=== PATIENT | female | born 1955 | race Caucasian/White ===

== ENCOUNTER 2017-04-22 14:55 | Inpatient (IN) | payer MEDICARE, OTHER ==
[~2017-04-22] VITALS: Ht 167.6 cm; Wt 102.5 kg
[2017-04-22 16:30] VITALS: BP 119/78
--- NOTE | 2017-04-22 17:20 | NUR ---
GPS RN ADMITTING NOTE Pt is 61 Y/O female brought in to the hospital by ambulance via gurney from [facility]. Pt admitted on a 5150 for DTS. Per 72 hrs hold, Pt not sleeping for 2 days, being depressed, not stable on medication and pt told collateral that she was going to overdose on pills. Upon admission, pt A/O X4 verbally responsive. Denies SI/HI/AVH. Skin assessment done and pictures placed in chart. Dr. Castillo (Psychiatrist) made aware about admission with new orders noted and carried out. Belongings secured. Pt oriented to new room and environment. Will continue to monitor her behavior. Called Taty (Caregiver) to notify that pt admitted to the unit, no response left msg to call back. Addendum: 04/22/17 at 1732 by ЕЛЕНА BENEDICT RN Pt admitted at 1630.
[2017-04-22] MEDS ORDERED: ACETAMINOPHEN 325 MG TABLET PO PRN (17:30)
[2017-04-22] MEDS ORDERED: MAGNESIUM HYDROXIDE 30 ML UDC PO PRN (17:30)
[2017-04-22] MEDS ORDERED: MAG HYDROX/AL HYDROX/SIMETH 30 ML UDC PO PRN (17:30)
[2017-04-22] MEDS ORDERED: NIFE60TA69 PO (17:54)
[2017-04-22] MEDS ORDERED: LURA40TA PO (17:56)
[2017-04-22] MEDS ORDERED: GABA-534 PO (17:56)
[2017-04-22] MEDS ORDERED: DIPH-530 PO ×2 (17:58→18:23)
--- NOTE | 2017-04-22 18:24 | NUR ---
GPS RN NOTE Called [facility] and left msg for Dr. Nguyen that pt is admitted to the unit.
--- NOTE | 2017-04-22 18:32 | NUR ---
GPS RN NOTE Received call from Noemy (Caregiver) made aware that pt admitted to the unit and made aware about visiting hours.
[2017-04-22 20:00] VITALS: BP 118/82
--- NOTE | 2017-04-22 22:30 | NUR ---
GPS RN: [facility] ON-CALL CALLED AND REMINDED FOR MED RECON. WILL WAIT FOR FURTHER ORDERS.
--- NOTE | 2017-04-23 04:20 | NUR ---
GPS RN: THE PATIENT IN THE ROOM KEPT ON RINGING HER CALL STAN AND YELLED, "WAKE UP, WAKE UP!" WHEN THE TRAINING DIRECTOR WENT INTO THE ROOM AND ASKED WHAT SHE NEEDS AND WHY SHE RANG HER PIERCE PATIENT ANSWERED, "I DON'T KNOW." A FEW MINUTES LATER, PATIENT'S ROOMMATE 219-B(KD) CAME TO THE STATION AND REPORTED THAT THE PATIENT ASKED HER, "HAVE YOU EVER HAD A SEX WITH YOUR DAD?, YOU SHOULD HAVE SEX WITH YOUR DAD". THE HOT DIE PICKER THEN WENT INTO THE PATIENT ROOM TO SET LIMITS WITH HER. REALITY ORIENTATION DONE. REMINDED PATIENT THAT SHE HAS A ROOMMATE AND THAT WE HAVE TO OBSERVE UNIT POLICIES ESPECIALLY WHEN IT COMES TO SILENCE INSIDE THE UNIT. WILL MONITOR PATIENT FOR MOOD, SAFETY AND BEHAVIOR.
--- NOTE | 2017-04-23 06:00 | NUR ---
GPS RN: CALLED [facility] FOR[employer] TECHNOLOGY PROFESSOR- GARRET CHIN AND REMINDED OF THE MED RECON. WILL FOLLOW UP.
[2017-04-23 07:03] LABS: ALBUMIN 3.3 g/dL (3.4-5.0); BILIRUBIN,TOTAL 0.5 mg/dL (0.2-1.0); CALCIUM, SERUM 9.3 mg/dL (8.5-10.1); CREATININE 1.7 mg/dL (0.6-1.3); POTASSIUM 4.2 mmol/L (3.5-5.1); TOTAL PROTEIN, SERUM 6.5 g/dL (6.4-8.2)
[2017-04-23 07:04] LABS: CHOLESTEROL 126 mg/dL (<200); HDL CHOLESTEROL 44 mg/dL (40-60); LDL 69 mg/dL (0-99); TRIGLYCERIDES 58 mg/dL (30-150)
[2017-04-23 08:00] VITALS: BP 148/91
[2017-04-23] MEDS: clonazePAM 0.5 MG TABLET PO PRN ×2 (09:23→23:37)
[2017-04-23] MEDS: NIFEdipine XL (30MG) 30 MG TAB PO SCH (10:33)
[2017-04-23] MEDS: GABAPENTIN 300 MG CAPSULE PO SCH ×2 (10:33→16:24)
[2017-04-23 16:07] VITALS: BP 120/90
[2017-04-23 16:09] LABS: APPEARANCE,URINE TURBID (CLEAR); BILIRUBIN,URINE NEGATIVE (NEGATIVE); BLOOD, URINE NEGATIVE Ery/uL (NEGATIVE); COLOR,URINE YELLOW (YELLOW); KETONES,URINE NEGATIVE (NEGATIVE); LEUKOCYTE ESTERASE ,URINE 1+ (NEGATIVE); NITRITE, URINE NEGATIVE (NEGATIVE); PH,URINE 5.5 (5.0-8.0); PROTEIN,URINE NEGATIVE (NEGATIVE); UGLUCOSE NEGATIVE (NEGATIVE); UROBILINOGEN,URINE 0.2 EU/dL (0.2)
[2017-04-23 16:22] LABS: CREATININE, URINE 46.4 MG/DL (30.0-125.0); URINE TOTAL PROTEIN 10.6 mg/dL (0-11.9)
[2017-04-23 17:05] LABS: RBC,URINE 0-2 /HPF (0-2)
[2017-04-23 17:07] LABS: BACTERIA,URINE Few /HPF (None Seen); SQUAMOUS EPITHELIAL CELL,UR Rare /HPF (None Seen)
[2017-04-23 17:08] LABS: EOSINOPHIL,URINE None Seen
--- NOTE | 2017-04-23 17:38 | NUR ---
Initial discharge plan :Pt lives alone at [address] [place] [address] and wants to return when stable. Pt. states she has a caregiver at home every day (4 hours a day) and knows she can take care of herself the rest of the time. Pt. refuses placement at this time and wants to return home. SW will follow up with pt's caregiver, Noemy [phone] and will help plan for a safe and proper discharge.
[2017-04-23 19:44] VITALS: BP 102/66
[2017-04-23] MEDS: diphenhydrAMINE HCL 25 MG CAPSULE PO SCH (21:31)
[2017-04-23 22:00] VITALS: BP 102/66
--- NOTE | 2017-04-23 23:39 | NUR ---
GPS RN: PATIENT NOTED TO BE ANXIOUS AT THIS TIME OF ASSESSMENT. REQUESTED FOR KLONOPIN MEDICATION. GIVEN 0.5 MG ORDERED. WILL CONTINUE TO MONITOR PATIENT AND THE EFFECTIVENESS OF THE MEDICATION.
[2017-04-24] MEDS: TEMAZEPAM 7.5 MG CAPSULE PO PRN (00:58)
--- NOTE | 2017-04-24 01:11 | NUR ---
GPS RN: NOTED THE PATIENT TO BE IN A SEXUALLY INAPPROPRIATE BEHAVIOR. WHEN SHE NOTICED THE NURSE, SHE THEN ASKED FOR HER RESTORIL MEDICATION. GIVEN RESTORIL 7.5 MG ORDERED. WILL MONITOR PATIENT AND THE EFFECTIVENESS OF THE MEDICATIONS.
[2017-04-24] MEDS ORDERED: Z GUARD REMEDY 4 OZ OINT TP ONE (05:51)
--- NOTE | 2017-04-24 06:38 | NUR ---
GPS RN: 0620- NOTED PATIENT IN THE ROOM, AWAKE , WITH LEGS WIDE OPEN AND HER RIGHT HAND TOUCHING HER PRIVATE PARTS AND STARTED TO SCREAM AT STAFF. 0635- PATIENT STILL IN THE ROOM AND TOUCHING HER PRIVATE INAPPROPRIATELY. TOLD THE PATIENT TO ONLY DO STUFF LIKE THAT IN PRIVATE AND TO COVER HERSELF UP WITH A BLANKET, PATIENT ANSWERED "WHAT'S A BLANKET?" "CAN YOU TOUCH ME?". INSTRUCTED PATIENT TO STOP WHAT SHE IS DOING, PATIENT REPLIED "BUT IT FEELS GOOD, CAN YOU TOUCH ME PLEASE" LIMIT SETTING DONE. TOLD PATIENT TO ONLY DO STUFF WHEN IN PRIVATE ROOM. WILL CONTINUE TO MONITOR PATIENT FOR MOOD, SAFETY AND BEHAVIOR.
[2017-04-24 06:49] LABS: BASOPHILS % (AUTO) 0.3 % (0.0-2.0); EOSINOPHILS # (AUTO) 0.4 /CMM (0.0-0.7); HEMATOCRIT 36 % (33-45); HEMOGLOBIN 12.4 g/dL (11.5-14.8); LYMPHOCYTES # (AUTO) 2.6 /CMM (0.8-4.8); MEAN CORPUSCULAR HEMOGLOBIN 31 PG (26.0-33.0); MEAN CORPUSCULAR HGB CONC 35 g/dl (31.0-36.0); MEAN CORPUSCULAR VOLUME 90 fL (82-100); MONOCYTES # (AUTO) 0.6 /CMM (0.1-1.30); MONOCYTES % (AUTO) 4.9 % (2.0-12.0); NEUTROPHILS # (AUTO) 8.4 /CMM (1.8-8.9); NEUTROPHILS % (AUTO) 69.8 % (43.0-81.0); PLATELET COUNT (AUTO) 275 /CMM (150-450); RDW COEFFICIENT OF VARIATION 12.8 (11.5-15.0)
[2017-04-24 07:26] LABS: CALCIUM, SERUM 9.2 mg/dL (8.5-10.1); CREATININE 1.7 mg/dL (0.6-1.3); MAGNESIUM 1.7 mg/dL (1.8-2.4); PHOSPHORUS 4.5 mg/dL (2.5-4.9); POTASSIUM 4.1 mmol/L (3.5-5.1)
[2017-04-24] MEDS: clonazePAM 0.5 MG TABLET PO PRN ×3 (07:49→23:45)
--- NOTE | 2017-04-24 07:49 | NUR ---
[id number]: GAVE KLONOPIN 0.25 MG PO DUE TO SEVERE ANXIETY UPON PT REQUEST AND WILL CONTINUE TO MONITOR FOR EFFECTIVENESS OF MEDICATION.
[2017-04-24 08:00] VITALS: BP 100/67
[2017-04-24] MEDS: GABAPENTIN 300 MG CAPSULE PO SCH ×2 (08:07→16:29)
[2017-04-24] MEDS: NIFEdipine XL (30MG) 30 MG TAB PO SCH (08:07)
--- NOTE | 2017-04-24 10:30 | NUR ---
[id number]: NOTIFIED DR. GAN ABOUT LAB RESULTS ON 04/24/17: HR=269, CHLORIDE= 110, ANION GAP= 15, BUN= 23, CREATININE= 1.7, TOTAL CREATININE KINASE=25. ALSO LAB RESULTS ON 04/23/17: URINE WBC= 3-5, UR RANDOM SODIUM= 25. NO NEW ORDERS AT THIS TIME
[2017-04-24] MEDS ORDERED: MAGNESIUM OXIDE 400 MG TABLET PO ONE (11:30)
[2017-04-24] MEDS: Z GUARD REMEDY 4 OZ OINT TP SCH (12:09)
--- NOTE | 2017-04-24 12:09 | NUR ---
[id number]: GAVE KLONOPIN 0.25 MG PO DUE TO SEVERE ANXIETY UPON PT REQUEST AND WILL CONTINUE TO MONITOR FOR EFFECTIVENESS OF MEDICATION.
--- NOTE | 2017-04-24 15:31 | NUR ---
BRIGIDO left a voicemail for pt's caregiver, Noemy [phone] and asked to call back to discuss pt's discharge and living conditions. BRIGIDO will follow up
[2017-04-24 16:00] VITALS: BP 130/90
[2017-04-24 20:18] VITALS: BP_SYST 120; BP_SYST 127; BP_DIAS 75; BP_DIAS 79
[2017-04-24] MEDS: diphenhydrAMINE HCL 25 MG CAPSULE PO SCH (21:32)
[2017-04-25] MEDS: TEMAZEPAM 7.5 MG CAPSULE PO PRN (02:41)
--- NOTE | 2017-04-25 07:30 | NUR ---
yells out from time to time.
[2017-04-25 08:00] VITALS: BP 142/99
--- NOTE | 2017-04-25 09:24 | NUR ---
given klonopin 0.25 mg po.yelling out loudly.verbally calmed down
[2017-04-25] MEDS: GABAPENTIN 300 MG CAPSULE PO SCH ×2 (09:27→17:23)
[2017-04-25] MEDS: clonazePAM 0.5 MG TABLET PO PRN ×2 (09:27→22:31)
[2017-04-25] MEDS: NIFEdipine XL (30MG) 30 MG TAB PO SCH (09:28)
[2017-04-25 11:10] LABS: *SPE A/G RATIO 1.1 (0.7-1.7); *SPE ALBUMIN 3.2 g/dL (2.9-4.4); *SPE ALPHA-1-GLOBULIN 0.3 g/dL (0.0-0.4); *SPE ALPHA-2-GLOBULIN 0.7 g/dL (0.4-1.0); *SPE BETA GLOBULIN 0.9 g/dL (0.7-1.3); *SPE GLOBULIN, TOTAL 2.9 g/dL (2.2-3.9); *SPE M-SPIKE Not Observed g/dL (Not Observed); *SPE PROTEIN TOTAL 6.1 g/dL (6.0-8.5)
[2017-04-25 14:16] LABS: PTH, INTACT 60 pg/mL (15-65)
--- NOTE | 2017-04-25 15:01 | NUR ---
Group Notes: S: Patient stated in group- "what is your education? how did you earn your degree so that you can talk to? 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 How can I research into getting an SATELLITE TV INSTALLER? O: Patient was hyperverbal and asking Sw questions about her education. Patient had do be redirected several times. A: Patient was interacting with staff and peers. Patient had to be redirected several times as she kept veering off topic. P: Sw will encourage patient to continue attending group activity.
[2017-04-25 16:00] VITALS: BP 146/91
--- NOTE | 2017-04-25 18:17 | NUR ---
no change in status.
--- NOTE | 2017-04-25 18:25 | NUR ---
no change in status.
--- NOTE | 2017-04-25 19:30 | NUR ---
GPS RN NOTE, RECEIVED PATIENT AWAKE AND IN BED, NO S/S OR COMPLAINTS OF PAIN AT THIS TIME. PATIENT IS DISPLAYING NO S/S OF APPARENT DISTRESS AT THIS TIME. PATIENT BREATHING IS UNLABORED WITH EQUAL RISE AND FALL OF THE CHEST. PATIENT IS ALERT AND ORIENTED X 3 ON ROOM AIR WITH A SPO2 97%. PATIENT COMPLAINT WITH MEDICATION, ANXIOUS, COOPERATIVE, MUMBLING TO SELF, DELUSIONAL, SEXUALLY INAPPROPRIATE, AND NEEDS REORIENTATION. PATIENT DENIES SUICIDE AND HOMICIDAL IDEATIONS AT THIS TIME. PATIENT ASSISTED WITH TURNING AND REPOSITIONING Q2HR AND PRN FOR COMFORT AND CIRCULATION. PATIENT HAS NO NEEDS AT THIS TIME. PATIENT EDUCATED ON THE USE OF THE CALL PIERCE. PATIENT BED SIDE RAILS UP X2 FOR SAFETY, BED IS LOCKED AND LOW WILL CONTINUE TO MONITOR AND MAINTAIN SAFETY.
[2017-04-25 20:34] VITALS: BP 131/83
[2017-04-25] MEDS: diphenhydrAMINE HCL 25 MG CAPSULE PO SCH (21:07)
--- NOTE | 2017-04-25 22:31 | NUR ---
GPS RN NOTE, PATIENT HAS A COMPLAINT OF FEELING ANXIOUS AND WOULD LIKE MEDICATION TO HELP CALM HER DOWN. PATIENT VITAL SIGNS ARE STABLE. GAVE KLONOPIN 0.25MG PO Q4HR PRN ORDERED. WILL REASSESS FOR ANXIETY AND I WILL CONTINUE TO MONITOR THIS PATIENT.
[2017-04-26] MEDS: TEMAZEPAM 7.5 MG CAPSULE PO PRN (02:47)
--- NOTE | 2017-04-26 02:47 | NUR ---
GPS RN OTE, PATIENT HAS A COMPLAINT OF NOT BEING ABLE TO SLEEP AND WOULD LIKE A SLEEPING AID AT THIS TIME. PATIENT VITAL SIGNS ARE STABLE. GAVE RESTORIL 7.5MG PO HS ORDERED. WILL REASSESS FOR INSOMNIA AND I WILL CONTINUE TO MONITOR THIS PATIENT.
[2017-04-26 08:00] VITALS: BP 151/98
[2017-04-26 08:15] LABS: BASOPHILS # (AUTO) 0.1 /CMM (0.0-0.2); BASOPHILS % (AUTO) 0.4 % (0.0-2.0); EOSINOPHILS # (AUTO) 0.3 /CMM (0.0-0.7); EOSINOPHILS % (AUTO) 2.3 % (0.0-6.0); HEMATOCRIT 39 % (33-45); HEMOGLOBIN 13.1 g/dL (11.5-14.8); LYMPHOCYTES # (AUTO) 2.2 /CMM (0.8-4.8); LYMPHOCYTES % (AUTO) 16.2 % (20.0-44.0); MEAN CORPUSCULAR HEMOGLOBIN 31 PG (26.0-33.0); MEAN CORPUSCULAR HGB CONC 34 g/dl (31.0-36.0); MEAN CORPUSCULAR VOLUME 90 fL (82-100); MONOCYTES # (AUTO) 0.7 /CMM (0.1-1.30); MONOCYTES % (AUTO) 5.4 % (2.0-12.0); NEUTROPHILS # (AUTO) 10.3 /CMM (1.8-8.9); NEUTROPHILS % (AUTO) 75.7 % (43.0-81.0); PLATELET COUNT (AUTO) 300 /CMM (150-450); RDW COEFFICIENT OF VARIATION 12.6 (11.5-15.0); WHITE BLOOD COUNT (AUTO) 13.6 K/uL (4.3-11.0)
[2017-04-26 08:29] LABS: CALCIUM, SERUM 9.4 mg/dL (8.5-10.1); CREATININE 1.9 mg/dL (0.6-1.3); POTASSIUM 4.4 mmol/L (3.5-5.1)
[2017-04-26] MEDS: NIFEdipine XL (30MG) 30 MG TAB PO SCH (08:39)
[2017-04-26] MEDS: GABAPENTIN 300 MG CAPSULE PO SCH ×2 (08:39→16:22)
[2017-04-26 12:12] LABS: CALCITRIOL VIT D,1, 25 DIHYDRO 9.4 pg/mL (19.9-79.3)
[2017-04-26] MEDS: clonazePAM 0.5 MG TABLET PO PRN (14:01)
[2017-04-26 16:00] VITALS: BP 134/90
--- NOTE | 2017-04-26 16:25 | NUR ---
GPS DATABASE TECHNICIAN NOTES RICKI THE DIABET[employer] SOLUTIONS SPECIALIST WAS NOTIFIED OF RISING WBC COUNT. NO NEW ORDERS OF YET. PT. REMAINS AFEBRILE. LATEST TEMPERATURE IS 98.0. WILL CONTINUE TO CLOSELY MONITOR
--- NOTE | 2017-04-26 16:30 | NUR ---
BRIGIDO spoke with pt's caregiver, Noemy [phone] who stated patient can return and that pt. is acting most of her symptoms as she did not want to attend a group that her brumfield has suggested. Per Noeym, pt's inappropriate sexual behavior has not been an issue at home and she does that to get attention. BRIGIDO informed pt's MD.
[2017-04-26 20:00] VITALS: BP 127/76
[2017-04-26] MEDS: diphenhydrAMINE HCL 25 MG CAPSULE PO SCH (21:36)
[2017-04-26] MEDS: QUETIAPINE FUMARATE 100 MG TABLET PO SCH (21:36)
[2017-04-27 08:00] VITALS: BP 149/89
[2017-04-27] MEDS: GABAPENTIN 300 MG CAPSULE PO SCH ×2 (08:08→16:03)
[2017-04-27] MEDS: NIFEdipine XL (30MG) 30 MG TAB PO SCH (08:08)
--- NOTE | 2017-04-27 10:41 | NUR ---
BRIGIDO spoke with pt's caregiver, Noemy [phone] who wanted to know if pt was ready for discharge. BRGIIDO notified Noemy that pt. is not ready yet and might be on Sunday or Sunday. BRIGIDO will follow up with Noemy when discharge day is scheduled.
[2017-04-27] MEDS ORDERED: ERGOCALCIFEROL (VITAMIN D 2) 50,000 UNIT CAPSULE PO SCH (11:00)
[2017-04-27 15:59] VITALS: BP 150/73
--- NOTE | 2017-04-27 19:29 | NUR ---
GPS RN NOTES RECEIVED SITTING ON CRISTINO CHAIR IN THE DINING ROOM,A/O X2-3,ABLE TO VERBALIZED NEEDS.PER REPORT,AMBULATE WITH WALKER,MED COMPLIANT AND ABLE TO ASSIST WITH CARE.WILL CONTINUE TO MONITOR BEHAVIOR AND MANAGE ACCORDINGLY.
[2017-04-27 20:00] VITALS: BP 106/73
[2017-04-27 20:03] VITALS: BP 106/73
[2017-04-27] MEDS: diphenhydrAMINE HCL 25 MG CAPSULE PO SCH (21:30)
[2017-04-27] MEDS: QUETIAPINE FUMARATE 100 MG TABLET PO SCH (21:30)
[2017-04-28 06:24] LABS: BASOPHILS # (AUTO) 0.1 /CMM (0.0-0.2); BASOPHILS % (AUTO) 0.5 % (0.0-2.0); EOSINOPHILS # (AUTO) 0.3 /CMM (0.0-0.7); EOSINOPHILS % (AUTO) 2.8 % (0.0-6.0); HEMATOCRIT 37 % (33-45); HEMOGLOBIN 12.5 g/dL (11.5-14.8); LYMPHOCYTES # (AUTO) 1.9 /CMM (0.8-4.8); LYMPHOCYTES % (AUTO) 16.8 % (20.0-44.0); MEAN CORPUSCULAR HEMOGLOBIN 31 PG (26.0-33.0); MEAN CORPUSCULAR HGB CONC 34 g/dl (31.0-36.0); MEAN CORPUSCULAR VOLUME 90 fL (82-100); MONOCYTES # (AUTO) 0.7 /CMM (0.1-1.30); MONOCYTES % (AUTO) 5.8 % (2.0-12.0); NEUTROPHILS # (AUTO) 8.4 /CMM (1.8-8.9); NEUTROPHILS % (AUTO) 74.1 % (43.0-81.0); PLATELET COUNT (AUTO) 240 /CMM (150-450); RDW COEFFICIENT OF VARIATION 12.6 (11.5-15.0); RED BLOOD CELL COUNT(AUTO) 4.04 MIL/uL (4.0-5.2); WHITE BLOOD COUNT (AUTO) 11.3 K/uL (4.3-11.0)
[2017-04-28 06:50] LABS: CREATININE 1.9 mg/dL (0.6-1.3); MAGNESIUM 1.9 mg/dL (1.8-2.4); PHOSPHORUS 4.1 mg/dL (2.5-4.9); POTASSIUM 4.1 mmol/L (3.5-5.1)
[2017-04-28 08:00] VITALS: BP 100/62
[2017-04-28] MEDS: NIFEdipine XL (30MG) 30 MG TAB PO SCH (08:34)
[2017-04-28] MEDS: GABAPENTIN 300 MG CAPSULE PO SCH ×2 (08:34→16:07)
[2017-04-28 16:12] VITALS: BP 129/76
[2017-04-28 20:00] VITALS: BP 112/78
[2017-04-28] MEDS: QUETIAPINE FUMARATE 100 MG TABLET PO SCH (21:41)
[2017-04-28] MEDS: TEMAZEPAM 7.5 MG CAPSULE PO PRN (21:41)
[2017-04-28] MEDS: diphenhydrAMINE HCL 25 MG CAPSULE PO SCH (21:41)
[2017-04-29 08:00] VITALS: BP 108/71
[2017-04-29] MEDS: NIFEdipine XL (30MG) 30 MG TAB PO SCH (08:11)
[2017-04-29] MEDS: GABAPENTIN 300 MG CAPSULE PO SCH ×3 (08:11→16:01)
[2017-04-29] MEDS: Z GUARD REMEDY 4 OZ OINT TP SCH (09:13)
[2017-04-29 16:13] VITALS: BP 106/80
[2017-04-29 20:18] VITALS: BP 132/87
[2017-04-29] MEDS: diphenhydrAMINE HCL 25 MG CAPSULE PO SCH (21:46)
[2017-04-29] MEDS: QUETIAPINE FUMARATE 100 MG TABLET PO SCH (21:46)
--- NOTE | 2017-04-30 00:27 | NUR ---
Pt has been easily irritable, depressed, guarded, with flat affect, & anhedonic but compliant with care.
[2017-04-30 07:20] LABS: BASOPHILS % (AUTO) 0.4 % (0.0-2.0); EOSINOPHILS # (AUTO) 0.2 /CMM (0.0-0.7); EOSINOPHILS % (AUTO) 2.5 % (0.0-6.0); HEMATOCRIT 36 % (33-45); LYMPHOCYTES # (AUTO) 1.5 /CMM (0.8-4.8); LYMPHOCYTES % (AUTO) 15.6 % (20.0-44.0); MEAN CORPUSCULAR HEMOGLOBIN 31 PG (26.0-33.0); MEAN CORPUSCULAR HGB CONC 34 g/dl (31.0-36.0); MEAN CORPUSCULAR VOLUME 91 fL (82-100); MONOCYTES # (AUTO) 0.6 /CMM (0.1-1.30); MONOCYTES % (AUTO) 5.9 % (2.0-12.0); NEUTROPHILS # (AUTO) 7.3 /CMM (1.8-8.9); NEUTROPHILS % (AUTO) 75.6 % (43.0-81.0); PLATELET COUNT (AUTO) 220 /CMM (150-450); RDW COEFFICIENT OF VARIATION 12.9 (11.5-15.0); RED BLOOD CELL COUNT(AUTO) 3.93 MIL/uL (4.0-5.2); WHITE BLOOD COUNT (AUTO) 9.7 K/uL (4.3-11.0)
[2017-04-30 07:43] LABS: CALCIUM, SERUM 9.4 mg/dL (8.5-10.1); CREATININE 1.9 mg/dL (0.6-1.3); POTASSIUM 4.5 mmol/L (3.5-5.1)
[2017-04-30 08:00] VITALS: BP 115/76
[2017-04-30] MEDS: GABAPENTIN 300 MG CAPSULE PO SCH ×3 (08:08→16:39)
[2017-04-30] MEDS: NIFEdipine XL (30MG) 30 MG TAB PO SCH (08:09)
[2017-04-30 16:00] VITALS: BP 104/61
[2017-04-30 19:51] VITALS: BP 124/71
[2017-04-30] MEDS: QUETIAPINE FUMARATE 100 MG TABLET PO SCH (21:17)
[2017-04-30] MEDS: diphenhydrAMINE HCL 25 MG CAPSULE PO SCH (21:17)
--- NOTE | 2017-05-01 06:43 | NUR ---
RN GPS NOTES PATIENT RESTING IN HER BED, NO CHANGES IN STATUS. ALL NEEDS ATTENDED TO. WILL ENDORSE TO NEXT SHIFT FOR CONTINUITY CARE.
[2017-05-01 08:00] VITALS: BP 108/64
[2017-05-01 08:12] VITALS: BP 108/64
[2017-05-01] MEDS: NIFEdipine XL (30MG) 30 MG TAB PO SCH (08:12)
[2017-05-01] MEDS: GABAPENTIN 300 MG CAPSULE PO SCH ×2 (08:13→12:22)
--- NOTE | 2017-05-01 10:39 | NUR ---
BRIGIDO left two voicemail for pt's caregiver, Noemy [phone], but have not heard back. Noemy is the only contact that is able to supervisor picking crew the patient. BRIGIDO will follow up. Pt. may need to be discharged via [employer] transportation if Noemy does not return the call.
--- NOTE | 2017-05-01 13:30 | NUR ---
[employer] SERVICES SUPERINTENDENT PT AOX3 NO DISTRESS NOTED CAREGIVER AT BEDSIDE TO TAKE HER HOME PT BEING DC, DC TEACHING DONE MATERIALS GIVEN PT CAREGIVER HAS GOOD UNDERSTANDING OF TEACHING AND PRESCRIPTION GIVEN. PT LEFT VIA AMBULANCE WITH CAREGIVER UNDER STABLE CONDITIONS.
--- NOTE | 2017-05-01 15:02 | NUR ---
Discharge note: [address] [place] [place] [id number] . Pt's caregiver, Noemy [phone] has been notified and picked her up. She did not call back to confirm but did show up to pick her up. Pt. will follow up with [employer] Tucker Dooley [address] [place] [address], [place], [place] [id number] [phone] after discharge. Discharge instructions were provided to the patient and caregiver and discharge paperwork has been signed. Addendum: 05/01/17 at 1505 by EARL FOFAAN Pt. was calm and cooperative, alert and oriented x4, denied suicidal/homicidal ideations. Pt. agreed with the discharge plan and was happy to be going home.
== END 2017-05-01 13:30 | disposition home or self-care (01) | DRG 885 ==
LOC: GPS 16:11
PROVIDERS: ADMIT Psychiatry & Neurology Psychiatry; ATTEND Internal Medicine
DX: F33.3 Major depressive disorder, recurrent, severe with psychotic symptoms (principal); N18.3 Chronic kidney disease, stage 3 (moderate); N17.9 Acute kidney failure, unspecified; E44.0 Moderate protein-calorie malnutrition; R45.851 Suicidal ideations; I12.9 Hypertensive chronic kidney disease with stage 1 through stage 4 chronic kidney disease, or unspecified chronic kidney disease; E86.9 Volume depletion, unspecified; F29 Unspecified psychosis not due to a substance or known physiological condition; G62.9 Polyneuropathy, unspecified; Z68.36 Body mass index [BMI] 36.0-36.9, adult; E66.9 Obesity, unspecified
CPT/HCPCS: 36415; 80048-TC; 80053-TC; 80061-TC; 81000-TC; 82306; 82550-TC; 82570-TC; 82652; 83735-TC; 83970; 84100-TC; 84155; 84155-TC; 84165; 84300-TC; 85025-TC; 87081-TC; 87086-TC; 93970-TC; 97001-TC; 97530-TC; Q0163